=== PATIENT | male | born 1985 | race Caucasian/White ===

== ENCOUNTER → 2018-12-23 | Outpatient (CLI) | payer OTHER ==
[~2018-12-23] MED LIST: ISOVUE-370 76% 100ML VIAL (Q9967) As Ordered ONE
--- NOTE | 2018-12-24 08:32 | REP ---
Clinical: Chronic cough and hemoptysis. Technique: Axial contrast enhanced images from the thoracic inlet to the upper abdomen with coronal and sagittal re-formations using 100 ml Isovue 370 intravenous contrast material. Findings: The bilateral lung crump are well-aerated and essentially clear. Very minimal right posterobasilar dependent changes are noted. No consolidation, nodule or mass lesion. No pleural effusion. Tracheobronchial tree is patent. No pneumothorax. Mediastinum is normal and without aortic aneurysm/dissection, cardiomegaly or pericardial effusion. No adenopathy. Limited upper abdomen demonstrates normal bilateral adrenal glands. Surrounding musculoskeletal structures are intact. There is evidence for old right clavicle fracture. Impression: 1. No acute mediastinal or pleuroparenchymal process appreciated. Electronically Signed by Dawson Burnett MD 12/24/2018 08:24 A
== END ==
LOC: M RAD 17:26
PROVIDERS: ATTEND General Practice
DX: R04.2 Hemoptysis (principal)
CPT/HCPCS: 71260; Q9967

== ENCOUNTER → 2019-05-12 | Outpatient (CLI) | payer OTHER ==
[~2019-05-12] MED LIST changes: +CONRAY-43 43% 50ML VIAL (Q9960) As Ordered ONE; -ISOVUE-370 76% 100ML VIAL (Q9967) As Ordered ONE; +PROHANCE 279.3MG/ML 5ML VIAL (A9576) As Ordered ONE
--- NOTE | 2019-05-12 10:17 | REP ---
Procedure: Right shoulder arthrogram The procedure was performed under the direct supervision of Dr. Blankenship. History: Right shoulder pain The benefits and risks including but not limited to pain, infection, bleeding and anaphylaxis were explained to the patient and informed consent was obtained. Technique: The right glenohumeral joint space was localized using fluoroscopic guidance. The skin was prepped and draped in a sterile fashion. 1% lidocaine was used as a local anesthetic. Using fluoroscopic guidance a 22 gauge spinal needle was inserted and advanced into the joint. 0.5 ml of Conray 43 was injected to verify placement. 11 ml of a solution containing 20 ml of sterile saline and 0.15 ml of ProHance was injected into the joint. The needle was removed and the patient was taken to MRI for postprocedural imaging. The the patient tolerated the procedure well and there were no immediate complications. Less than 6 seconds of fluoro time was utilized for this procedure. Reviewed by SAL Cyr 05/12/2019 08:50 A Electronically Signed by Sammy Blankenship MD 05/12/2019 10:09 A
--- NOTE | 2019-05-12 12:10 | REP ---
MR ARTHROGRAPHY RIGHT SHOULDER: with pre- and post intra-articular gadolinium enhanced saline injected imaging: HISTORY: Right shoulder pain. Limited range of motion and tenderness palpation at the AC joint. The patient gives a history of orthopedic metallic pins in the right clavicle. TECHNIQUE: The injection procedure is performed and dictated separately. Pre and post intra-articular gadolinium enhanced saline injected imaging is acquired. Imaging planes include axial, oblique coronal, oblique sagittal and ABER projection images. T1- and T2-weighted scans are included with and without fat saturation. MRI FINDINGS: Fluoroscopic spot films attendant to the injection proportion of the procedure demonstrates a screw plate fixation device in the distal clavicle on the right. There is some magnetic field susceptibility artifact associated with this, which locally impairs image quality. There is subcortical cyst formation in the superolateral aspect of the humeral head. There is a small sliver of glenohumeral joint fluid on pre injection imaging. Post injection imaging shows good filling enhancement of the glenohumeral articulation. There is no evidence of anterior or posterior labral tear. There is no visible rotator cuff tear on T1-weighted postcontrast images although there is some metallic field susceptibility artifact interfering with signal intensity in the region of the anterior aspect of the supraspinatus tendon. No loose body is seen. Biceps tendon appears intact. There appears to be some thickening of the subscapularis tendon consistent with tendinosis. Infraspinatus tendon is unremarkable. IMPRESSION: No evidence of rotator cuff tear or labral tear seen. Image quality somewhat degraded by metallic orthopedic device in the distal clavicle. Tendinosis change is suspected in the subscapularis tendon. Electronically Signed by Sammy Blankenship MD 05/12/2019 02:24 P
== END ==
LOC: M RADPRO 06:11
PROVIDERS: ATTEND Physician Assistant
DX: M25.511 Pain in right shoulder (principal)
CPT/HCPCS: 23350; 73223; 77002; A9576; Q9960